=== PATIENT | male | born 1980 | race Caucasian/White ===

== ENCOUNTER 2016-08-27 21:59 | Inpatient (IN) | payer OTHER ==
--- NOTE | ~2016-08-27 | DS ---
Discharge Summary [facility] [address] [place]. [address] NAME: GENESIS CLEARY : 78 STATUS : DIS IN PAT#: [id number] AGE: 35 ADM/REG DATE : 08/27/16 MR#: [id number] REPORT SERV DATE: 08/31/16 DICTATED BY: REYNALDO PAYTON DATE: 08/31/16 REPORT STATUS : Draft TRANSCRIBED BY: MODL DATE: 08/31/16 ADMISSION DATE: 08/27/2016 DISCHARGE DATE: 08/31/2016 DISCHARGE DIAGNOSES: 1. Acute alcohol withdrawal with delirium tremens. 2. Acute severe pancreatitis, but otherwise uncomplicated. 3. Systemic inflammatory response syndrome, unclear source, resolved. 4. Chronic systolic congestive heart failure with ejection fraction of 40% at baseline. 5. Bipolar disorder and anxiety. CONSULTANTS: None. PROCEDURES: None. HOSPITAL COURSE: This is a 35-year-old gentleman who was admitted to the hospital with diagnosis of acute pancreatitis. For details, please refer to excellent H and P dictated by Dr. Woody Childs. In summary, the patient was admitted and was given IV analgesia along with IV fluid resuscitation and benzos for alcohol withdrawal. The patient actually did really well in terms of acute pancreatitis, and by the second day of hospital stay, the patient was able to tolerate a full-liquid diet without much symptoms. Although the CT scan of the abdomen and pelvis showed that the patient had severe pancreatitis, the patient's lipase actually normalized by the second day also. The patient did have a right upper quadrant ultrasound which did not reveal any evidence for gallstone disease. The patient actually suffered more from acute alcohol withdrawal than the acute pancreatitis. By the third day of the hospital stay, it was quite evident that the patient was suffering from DTs. The patient was treated appropriately with Ativan per [facility] protocol. The patient's delirium peaked on the fourth day where he was clearly showing signs of potential confabulation. Somehow by the fifth day, the patient had become quite lucid and back to his baseline. The patient's family was happy and felt safe for him to return home. The patient himself appeared quite stable for discharge. Throughout the hospital, the patient was given extensive education and counseling regarding alcohol cessation. Also of note, the patient has been taking Lamictal and Anafranil which were discontinued at the patient and the family's request, as the patient has been taking them along with alcohol and it seems to have affected his personality at least from the family's perspective. The patient will follow up with his psychiatrist upon returning home as soon as possible. The patient also had an episode of wheezing for which the patient was treated with IV steroids and breathing treatments to which he responded really well to. The patient is now being discharged to home in stable condition with close outpatient followup plans. DISPOSITION: Home. DISCHARGE MEDICATIONS: Discharge Summary [address] [address] NAME: GENESIS CLEARY : 78 STATUS : DIS IN PAT#: [id number] AGE: 35 ADM/REG DATE : 08/27/16 MR#: [id number] REPORT SERV DATE: 08/31/16 DICTATED BY: REYNALDO PAYTON DATE: 08/31/16 REPORT STATUS : Draft TRANSCRIBED BY: MAE DATE: 08/31/16 1. Albuterol inhaler. 2. Discontinued Lamictal and Anafranil, otherwise no changes. FOLLOWUP: 1. Please follow up with PCP in the next one to two weeks. 2. Please follow up with the psychiatrist as soon as possible. Also, patient was recommended to follow up with AA. A total of 30 minutes spent in coordinating this patient's discharge today. DICTATED BY: Reynaldo Payton MD Lia/MAE Reynaldo Payton MD / [id number] CC: Renyaldo Payton MD
--- NOTE | ~2016-08-27 | HP ---
History And Physical [place] [id number] [facility] [place]. [address] NAME: GENESIS CLEARY : 78 STATUS : ADM IN PAT#: [id number] AGE: 35 ADM/REG DATE : 08/27/16 MR#: [id number] REPORT SERV DATE: 08/28/16 DICTATED BY: MAX CORNELL DATE: 08/28/16 REPORT STATUS : Draft TRANSCRIBED BY: MODL DATE: 08/28/16 DATE OF ADMISSION: 08/27/2016 CHIEF COMPLAINT: A 35-year-old male presenting with extreme abdominal pain and alcoholism. HISTORY OF PRESENT ILLNESS: The patient's history was obtained through careful interview with the patient and , coupled with review of [facility] and [facility] medical records. The patient admits to being a heavy alcoholic, drinking more than a pint of vodka a day. When he has tried to quit alcohol in the past, it has led to withdrawal like symptoms. It is in this context that around 08/25/2016 patient began to feel ill. He first developed fevers and chills and a slight queasy ill feeling. This chills actually resolved but then about 24 hours prior to admission he began to develop new onset abdominal pain. He describes epigastric abdominal discomfort without radiation. It has a sharp quality pain, 10/10 severity at its worse associated with abdominal distention. The patient has had nausea, vomiting, very poor appetite, and poor oral intake. He has had shortness of breath associated with his abdominal distention and pain. No chest pain. No change of bowel or bladder habit. REVIEW OF SYSTEMS: Otherwise, a 14-point review of systems was obtained and was negative. PAST MEDICAL HISTORY: 1. Systolic congestive heart failure with ejection fraction of 40%, followed by Dr. Paredes. 2. Anxiety with bipolar disorder. PAST SURGICAL HISTORY: Back surgery and nasal surgery. ALLERGIES: NO KNOWN DRUG ALLERGIES. SOCIAL HISTORY: Drinks more than a pint of vodka a day. Smokes cigarettes. He is . Works with a [employer] company. He lives in [place], [place], with his . They have two children, ages three and five years old. FAMILY HISTORY: Cancer and heart disease. CURRENT MEDICATIONS: Include albuterol inhaler, Coreg 12.5 mg p.o. b.i.d., Anafranil 50 mg p.o. daily, Lamictal 300 mg p.o. at bedtime, lisinopril 10 mg p.o. daily, Ativan 1 mg at bedtime, multivitamins, and Prilosec 20 mg p.o. daily. History And Physical [place] [address] [place]. [address] NAME: GENESIS CLEARY : 78 STATUS : ADM IN [facility]#: [id number] AGE: 35 ADM/REG DATE : 08/27/16 MR#: [id number] REPORT SERV DATE: 08/28/16 DICTATED BY: MAX CORNELL DATE: 08/28/16 REPORT STATUS : Draft TRANSCRIBED BY: MAE DATE: 08/28/16 PHYSICAL EXAMINATION: VITAL SIGNS: Temperature 97.8, pulse 115, blood pressure 147/97, respiratory rate 16, and O2 saturation 97% on room air. GENERAL: An ill-appearing male in evidence of quite a bit of distress secondary to abdominal pain and nausea. HEENT: Pupils equal, round, and reactive to light. No conjunctival pallor. No scleral icterus. Nares are patent. Oropharynx is clear of obstruction. Dry mucous membranes. NECK: Trachea midline. No thyromegaly. LYMPH: No cervical lymphadenopathy. No supraclavicular lymphadenopathy. RESPIRATORY: Clear to auscultation at bases. No wheezes, rales, or rhonchi. Normal respiratory effort. CARDIOVASCULAR: Tachycardic, regular rhythm. No murmurs, rubs, or gallops. No current extremity edema is appreciated. ABDOMEN: Extremely tender particularly in the epigastric area with guarding. No rebound. Quite distended throughout. No specific right upper quadrant discomfort. No hepatosplenomegaly. DERMATOLOGIC: Warm, dry extremities. No pallor. No cyanosis. PSYCHIATRIC: Normal affect. Good mood. Alert and oriented x3. LABORATORY DATA: White blood cell count 12.1, hemoglobin 16, hematocrit 46, and platelets 165. Sodium 134, potassium 4.3, chloride 99, bicarb 30, BUN 5, creatinine 0.17, glucose 108, troponin negative. Lipase 500. INR 1.0. AST 94, ALT 106, alkaline phosphatase 67, and total bilirubin 1.1. STUDIES: 1. Chest x-ray by my own evaluation shows no acute cardiopulmonary process. 2. EKG by my own evaluation shows sinus rhythm with tachycardia. 3. CT scan of the abdomen shows acute pancreatitis "severe" but without any other complications. ASSESSMENT AND PLAN: 1. Acute pancreatitis, seemed to be induced from alcohol abuse. Place on [employer] Dilaudid. Alcohol abstinence. Place on IV fluids. Check an ultrasound of the gallbladder. 2. Alcoholism. Stressed the importance of complete abstinence. We will place on scheduled Librium. Place on a banana bag IV. 3. Systemic inflammatory response syndrome with subjective fevers and chills. Start empiric IV antibiotics. 4. Chronic systolic congestive heart failure with history of ejection fraction of 40%. 5. Bipolar disorder with anxiety. KPL/MODAce Max Cornell M.D. History And Physical [address] [address] NAME: GENESIS CLEARY : 78 STATUS : ADM IN PAT#: [id number] AGE: 35 ADM/REG DATE : 08/27/16 MR#: [id number] REPORT SERV DATE: 08/28/16 DICTATED BY: MAX CORNELL DATE: 08/28/16 REPORT STATUS : Draft TRANSCRIBED BY: MAE DATE: 08/28/16 / [id number] CC: Reynaldo Hoang MD
[2016-08-27 18:46] LABS: BASOPHILS 0.2 %; BASOPHILS ABSOLUTE 0.02 10/3/uL (0.0-0.16); EOSINOPHILS 1.7 %; EOSINOPHILS ABSOLUTE 0.21 10/3/uL (0.0-0.53); ER CBC TAT 0 Hrs 11 Mins; HEMATOCRIT 45.9 % (40.0-51.0); HEMOGLOBIN 15.9 g/dL (13.6-17.8); IMMATURE GRANULOCYTES 0.3 %; IMMATURE GRANULOCYTES ABSOLUTE 0.04 10/3/uL (0.0-0.11); LYMPHOCYTES 15.9 %; LYMPHOCYTES ABSOLUTE 1.92 10/3/uL (0.67-4.30); MEAN CORPUS HGB CONC 34.6 g/dL (32.0-36.0); MEAN CORPUSCULAR HEMOGLOB 32.6 pg (26.0-34.0); MONOCYTES 12.2 %; MONOCYTES ABSOLUTE 1.47 10/3/uL (0.21-1.20); NEUTROPHILS 69.7 %; PLATELET COUNT 165 10/3/uL (150-400); RBC DISTRIBUTION WIDTH 12.8 % (12.0-16.0); RED CELL COUNT 4.87 10/6/uL (4.7-6.1); WHITE BLOOD CELLS 12.1 10/3/uL (4.5-10.5)
[2016-08-27 18:47] LABS: MANUAL DIFF NO %; MEAN CORPUSCULAR VOLUME 94.3 fL (80-100)
[2016-08-27 18:51] LABS: PARTIAL THROMBO TIME 29.6 SEC (22.5-37.2); PROTIME (NOT ORD) 12.7 SEC (12.0-14.5)
[2016-08-27 18:55] LABS: BUN (BLOOD UREA NITROGEN) 5 MG/DL (6-23); CALCIUM, SERUM 9.7 MG/DL (8.5-10.4); CHEST PAIN PROFILE TAT 0 Hrs 20 Mins; CREATININE 1.17 MG/DL (0.70-1.30); GFR AFRICAN AMERICAN 92 ML/MIN (>=60); GFR NON AFRICAN AMERICAN 80 ML/MIN (>=60); GLUCOSE, SERUM 108 MG/DL (60-99); POTASSIUM, SERUM 4.3 MMOL/L (3.5-5.3); TROPONIN I <0.02 NG/ML (<0.05)
[2016-08-27 18:56] LABS: CHLORIDE, SERUM 99 MMOL/L (96-112); CO2 (CARBON DIOXIDE) 30 MMOL/L (24-34); SODIUM, SERUM 134 MMOL/L (135-148)
[2016-08-27 22:24] LABS: ALBUMIN 3.8 G/DL (3.5-5.0); ALKALINE PHOSPHATASE 67 U/L (45-117); DIRECT BILIRUBIN 0.3 MG/DL (0.0-0.4); INDIRECT BILIRUBIN(NOT ORDER) 0.8 MG/DL (0.1-0.9); SGOT(AST) 94 U/L (5-40); SGPT(ALT) 106 U/L (5-65); TOTAL PROTEIN 8.3 G/DL (6.0-8.5)
[2016-08-27 22:27] LABS: TOTAL BILIRUBIN 1.1 MG/DL (0-1.2)
[2016-08-27] MEDS ORDERED: LAMICTAL150 MG PO (22:30)
[2016-08-27] MEDS ORDERED: ANAF PO (22:30)
[2016-08-27] MEDS ORDERED: ATV1 PO (22:31)
[2016-08-27] MEDS ORDERED: PRIN10 PO (22:31)
[2016-08-27] MEDS ORDERED: Proair Hfa (22:31)
[2016-08-27] MEDS ORDERED: COREG12 PO (22:31)
[2016-08-27] MEDS ORDERED: Multivitamin Tab (22:32)
[2016-08-27] MEDS ORDERED: MAXITROL OPH (22:32)
[2016-08-27] MEDS ORDERED: PRILO PO (22:32)
[2016-08-28 06:23] LABS: BASOPHILS 0.2 %; BASOPHILS ABSOLUTE 0.03 10/3/uL (0.0-0.16); EOSINOPHILS 2.7 %; EOSINOPHILS ABSOLUTE 0.36 10/3/uL (0.0-0.53); HEMATOCRIT 45.5 % (40.0-51.0); HEMOGLOBIN 15.5 g/dL (13.6-17.8); IMMATURE GRANULOCYTES 0.7 %; IMMATURE GRANULOCYTES ABSOLUTE 0.09 10/3/uL (0.0-0.11); LYMPHOCYTES 22.6 %; LYMPHOCYTES ABSOLUTE 3.07 10/3/uL (0.67-4.30); MEAN CORPUS HGB CONC 34.1 g/dL (32.0-36.0); MEAN CORPUSCULAR HEMOGLOB 33.2 pg (26.0-34.0); MEAN PLATELET VOLUME 10.2 fL (9.2-13.0); MONOCYTES ABSOLUTE 1.49 10/3/uL (0.21-1.20); NEUTROPHILS 62.8 %; NEUTROPHILS ABSOLUTE 8.52 10/3/uL (2.02-8.40); PLATELET COUNT 171 10/3/uL (150-400); RBC DISTRIBUTION WIDTH 12.8 % (12.0-16.0); RED CELL COUNT 4.67 10/6/uL (4.7-6.1); WHITE BLOOD CELLS 13.6 10/3/uL (4.5-10.5)
[2016-08-28 06:24] LABS: MANUAL DIFF NO %; MEAN CORPUSCULAR VOLUME 97.4 fL (80-100)
[2016-08-28 06:26] LABS: INTERNATIONAL NORMAL RATI 1.1 UNITS (-); PARTIAL THROMBO TIME 34.7 SEC (22.5-37.2); PROTIME (NOT ORD) 13.7 SEC (12.0-14.5)
[2016-08-28 06:49] LABS: ALBUMIN 3.3 G/DL (3.5-5.0); ALKALINE PHOSPHATASE 61 U/L (45-117); BUN (BLOOD UREA NITROGEN) 7 MG/DL (6-23); CALCIUM, SERUM 9.2 MG/DL (8.5-10.4); CHLORIDE, SERUM 100 MMOL/L (96-112); CO2 (CARBON DIOXIDE) 27 MMOL/L (24-34); CREATININE 1.36 MG/DL (0.70-1.30); GFR AFRICAN AMERICAN 77 ML/MIN (>=60); GFR NON AFRICAN AMERICAN 66 ML/MIN (>=60); GLUCOSE, SERUM 112 MG/DL (60-99); POTASSIUM, SERUM 4.2 MMOL/L (3.5-5.3); SGPT(ALT) 86 U/L (5-65); SODIUM, SERUM 136 MMOL/L (135-148); TOTAL BILIRUBIN 1.2 MG/DL (0-1.2); TROPONIN I <0.02 NG/ML (<0.05)
[2016-08-28 06:52] LABS: A/G RATIO 0.7 (0.7-1.9); GLOBULIN 4.7 G/DL (2.5-4.1)
[2016-08-28 06:53] LABS: SGOT(AST) 71 U/L (5-40)
[2016-08-29 06:37] LABS: BASOPHILS 0.6 %; BASOPHILS ABSOLUTE 0.06 10/3/uL (0.0-0.16); EOSINOPHILS 6.2 %; EOSINOPHILS ABSOLUTE 0.58 10/3/uL (0.0-0.53); HEMOGLOBIN 12.8 g/dL (13.6-17.8); IMMATURE GRANULOCYTES 1.1 %; LYMPHOCYTES 26.9 %; LYMPHOCYTES ABSOLUTE 2.54 10/3/uL (0.67-4.30); MEAN CORPUS HGB CONC 33.7 g/dL (32.0-36.0); MEAN CORPUSCULAR HEMOGLOB 32.9 pg (26.0-34.0); MEAN CORPUSCULAR VOLUME 97.7 fL (80-100); MEAN PLATELET VOLUME 10.3 fL (9.2-13.0); MONOCYTES 9.1 %; MONOCYTES ABSOLUTE 0.86 10/3/uL (0.21-1.20); NEUTROPHILS 56.1 %; NEUTROPHILS ABSOLUTE 5.29 10/3/uL (2.02-8.40); NUCLEATED RED BLOOD CELLS 0.3 /100WBC (0-0); PLATELET COUNT 140 10/3/uL (150-400); RBC DISTRIBUTION WIDTH 12.8 % (12.0-16.0); RED CELL COUNT 3.89 10/6/uL (4.7-6.1); WHITE BLOOD CELLS 9.4 10/3/uL (4.5-10.5)
[2016-08-29 06:39] LABS: A/G RATIO 0.6 (0.7-1.9); ALBUMIN 2.7 G/DL (3.5-5.0); ALKALINE PHOSPHATASE 56 U/L (45-117); CALCIUM, SERUM 8.7 MG/DL (8.5-10.4); CHLORIDE, SERUM 103 MMOL/L (96-112); CO2 (CARBON DIOXIDE) 24 MMOL/L (24-34); CREATININE 1.24 MG/DL (0.70-1.30); GFR AFRICAN AMERICAN 86 ML/MIN (>=60); GFR NON AFRICAN AMERICAN 74 ML/MIN (>=60); GLOBULIN 4.2 G/DL (2.5-4.1); POTASSIUM, SERUM 4.6 MMOL/L (3.5-5.3); SGOT(AST) 59 U/L (5-40); SGPT(ALT) 58 U/L (5-65); SODIUM, SERUM 135 MMOL/L (135-148); TOTAL PROTEIN 6.9 G/DL (6.0-8.5)
[2016-08-29 06:41] LABS: BUN (BLOOD UREA NITROGEN) 12 MG/DL (6-23); GLUCOSE, SERUM 61 MG/DL (60-99); TOTAL BILIRUBIN 0.6 MG/DL (0-1.2)
[2016-08-29 06:45] LABS: MANUAL DIFF NO %
[2016-08-31 07:25] LABS: HEMATOCRIT 41.4 % (40.0-51.0); HEMOGLOBIN 14.4 g/dL (13.6-17.8); MEAN CORPUS HGB CONC 34.8 g/dL (32.0-36.0); MEAN CORPUSCULAR HEMOGLOB 33.3 pg (26.0-34.0); MEAN CORPUSCULAR VOLUME 95.8 fL (80-100); MEAN PLATELET VOLUME 10.3 fL (9.2-13.0); RBC DISTRIBUTION WIDTH 12.6 % (12.0-16.0); RED CELL COUNT 4.32 10/6/uL (4.7-6.1); WHITE BLOOD CELLS 8.9 10/3/uL (4.5-10.5)
[2016-08-31 07:27] LABS: MANUAL DIFF YES %; PLATELET COUNT 257 10/3/uL (150-400)
[2016-08-31 07:33] LABS: A/G RATIO 0.7 (0.7-1.9); ALBUMIN 3.1 G/DL (3.5-5.0); ALKALINE PHOSPHATASE 56 U/L (45-117); CHLORIDE, SERUM 103 MMOL/L (96-112); CO2 (CARBON DIOXIDE) 23 MMOL/L (24-34); CREATININE 0.95 MG/DL (0.70-1.30); GFR AFRICAN AMERICAN 119 ML/MIN (>=60); GFR NON AFRICAN AMERICAN 103 ML/MIN (>=60); GLOBULIN 4.3 G/DL (2.5-4.1); SGPT(ALT) 60 U/L (5-65); SODIUM, SERUM 136 MMOL/L (135-148); TOTAL BILIRUBIN 0.4 MG/DL (0-1.2); TOTAL PROTEIN 7.4 G/DL (6.0-8.5)
[2016-08-31 07:34] LABS: BUN (BLOOD UREA NITROGEN) 8 MG/DL (6-23); CALCIUM, SERUM 9.7 MG/DL (8.5-10.4); GLUCOSE, SERUM 114 MG/DL (60-99); POTASSIUM, SERUM 4.6 MMOL/L (3.5-5.3); SGOT(AST) 59 U/L (5-40)
[2016-08-31 07:46] LABS: BAND NEUTROPHILS 3 %; EOSINOPHILS 2 %; EOSINOPHILS ABSOLUTE (CALC) 0.18 10/3/uL (0.0-0.53); IMMATURE GRANS ABSOLUTE (CALC) 0.18 10/3/uL (0.0-0.11); LYMPHOCYTES 20 %; LYMPHOCYTES ABSOLUTE (CALC) 1.78 10/3/uL (0.67-4.30); METAMYELOCYTES 2 %; MONOCYTES 11 %; MONOCYTES ABSOLUTE (CALC) 0.98 10/3/uL (0.21-1.20); NEUTROPHILS ABSOLUTE (CALC) 5.79 10/3/uL (2.02-8.40); SEGMENTED NEUTROPHIL (0) 62 %; TOTAL NUCLEATED CELLS 100
[2016-08-31 07:47] LABS: GIANT PLATELET RARE; PLATELET ESTIMATE ADQ (ADEQUATE)
[2016-08-31 07:48] LABS: RBC MORPHOLOGY NORM (NORMAL)
[2016-08-31] MEDS ORDERED: VENTOLIN HFA INH (11:33)
== END 2016-08-31 13:26 | disposition home or self-care (01) | DRG 896 ==
LOC: ER 21:59 → 4SO 23:34
PROVIDERS: Emergency Medicine; Hospitalist; Internal Medicine
DX: F10.231 Alcohol dependence with withdrawal delirium (principal); K85.90 Acute pancreatitis without necrosis or infection, unspecified; I50.22 Chronic systolic (congestive) heart failure; F31.9 Bipolar disorder, unspecified; F41.9 Anxiety disorder, unspecified
CPT/HCPCS: 70450; 71020; 74176; 76705; 80048; 80053; 80076; 82150; 82962; 83690; 83735; 83880; 84145; 84443; 84484; 85025; 85610; 85730; 93005; 99285; A9270-GY; J1170; J1956; J2920; J3411